=== PATIENT | female | born 1950 | race Caucasian/White ===

== ENCOUNTER → 2016-11-20 | Outpatient (CLI) | payer MEDICAID ==
[~2016-11-20] MED LIST: ATIVAN 1 MG1 MG PO; BENADRYL25 MG PO; CENTRUM MULTIV1 EACH PO; CICLODAN 0.77%544 GM TOP; CITRACAL+D(315M1 TAB PO; CLARITIN10 M3 PO; DIFLUCAN200 MG PO; DILANTIN100 MG PO; INVEGA6 MG PO; LEVOTHROID (S100 MCG PO; LOPROX; MACRODANTIN *IA50 MG PO; MIRALAX17 GM PO; MYSOLINE50 MG PO; PHENERGAN25 M1 PO; PREMARIN0.625 MG; PREMARIN0.625 MG PO; ZOCOR40 MG PO
== END | disposition disaster alternative care site (69) ==
LOC: LGSRV 11:04
DX: R56.9 Unspecified convulsions (principal)